=== PATIENT | male | born 1995 | race Caucasian/White ===

== ENCOUNTER → 2021-06-05 15:25 | Outpatient (CLI) | payer BC, SELFPAY ==
--- NOTE | 2021-06-05 15:30 | US_ITS ---
FINAL REPORT CLINICAL HISTORY: MASS FINDINGS: Sonographic images of the thyroid were obtained. The right lobe of the thyroid measures 1.5 x 4.4 x 2.2 cm. The left lobe of the thyroid measures 1.3 x 4.0 x 1.8 cm. There is a small isthmus nodule measuring 6.2 mm consistent with TI-RADS Category 4. IMPRESSION: Small isthmus nodule consistent with TI-RADS Category 4. No follow-up is recommended. Reviewed, Interpreted and Dictated by Elder Ascencio III, MD Transcribed by Marylou Coffman Authenticated by Elder Ascencio III, MD on 06/08/2021 02:00:16 PM [facility]
== END ==
PROVIDERS: PCP Family Medicine; Visit Provider Family Medicine
DX: E04.1 Nontoxic single thyroid nodule (principal)
CPT/HCPCS: 76536

== ENCOUNTER 2021-08-10 04:11 | Emergency (ER) | payer BC, SELFPAY ==
[2021-08-10 04:13] VITALS: BP 132/62; PULSE 78; RESP 16; TEMP 36.7; O2SAT 98; BMI 34.4
--- NOTE | 2021-08-10 04:21 | CT_ITS ---
PROCEDURE INFORMATION: Exam: CT Head Without Contrast Exam date and time: 08/10/2021 4:30 AM Age: 26 years old Clinical indication: Injury or trauma; Blunt trauma (contusions or hematomas); With loss of consciousness; Loss of consciousness for 30 minutes or less; Injury date: 08/10/21; Patient HX: Fall, multiple lacerations to the face. States loc for about 15 minutes. Also C/O headache TECHNIQUE: Imaging protocol: Computed tomography of the head without contrast. Radiation optimization: All CT scans at this facility use at least one of these dose optimization techniques: automated exposure control; mA and/or kV adjustment per patient size (includes targeted exams where dose is matched to clinical indication); or iterative reconstruction. COMPARISON: US THYROID 06/05/2021 3:37 PM FINDINGS: Brain: Normal. No hemorrhage. Unremarkable white matter. No mass effect. Cerebral ventricles: No ventriculomegaly. Paranasal sinuses: Minimal retained secretions present within the mid right ethmoidal sinus. Remaining paranasal sinuses appear well aerated. Mastoid air cells: Visualized mastoid air cells are well aerated. Vasculature: Intracranial artery density is normal. Bones/joints: Unremarkable. No acute fracture. Soft tissues: Unremarkable. IMPRESSION: 1. No evidence of acute intracranial bleed or focal cerebral edema. 2. Minimal retained secretions present within the right ethmoidal sinus. Remaining paranasal sinuses appear well aerated.
--- NOTE | 2021-08-10 04:22 | HMH.EDGENADL ---
ED Disposition Clinical Impression: Nausea vomiting and diarrhea Concussion Qualifiers: Encounter type: initial encounter Loss of consciousness presence/duration: with LOC of 30 min or less Qualified Code(s): S06.0X1A - Concussion with loss of consciousness of 30 minutes or less, initial encounter Facial laceration Qualifiers: Encounter type: initial encounter Qualified Code(s): S01.81XA - Laceration without foreign body of other part of head, initial encounter Disposition: Home, Self-Care Condition on Discharge: Good Instructions: DI for Concussion, DI for Postconcussion Syndrome, Nausea and Vomiting-Adult Additional Instructions: Follow-up with your primary care doctor. Return to the emergency department for any new or worsening symptoms, vision changes, headache, persistent vomiting, other concerns. Prescriptions: Ondansetron [Zofran 4mg ODT] 4 mg PO Q6 PRN #12 tab PRN Reason: Nausea Transmission Status: Received by [id number] Referrals: Tee Rodriguez [Primary Care Provider] - Forms: Work/School Release Time of Disposition: 05:35 - Critical Care Critical Care Time: No Attestation: On , the high probability of a clinically significant, sudden or life threatening deterioration of the following system(s) required my full and direct attention, intervention and personal management. The time I documented below is in addition to time spent performing reported procedures but includes the following listed in this critical care notation. Medical Decision Making - Medical Records Medical records reviewed: Yes: I reviewed the patient's medical records. - Teddy Inquiry Pt receiving controlled substance: No Vital Signs: 08/10/21 04:13 08/10/21 04:35 08/10/21 05:00 Temperature 98.1 F Temperature Source Oral Pulse Rate 81 Pulse Rate [Left Radial] 78 Pulse Rate [Orthostatic Lying Left Radial] 79 Pulse Rate [Orthostatic Sitting Left] 88 Pulse Rate [Orthostatic Standing Left Radial] 95 H Respiratory Rate 16 Blood Pressure 113/65 Blood Pressure [Orthostatic Lying Right Arm] 132/62 Blood Pressure [Orthostatic Sitting Right Arm] 130/77 Blood Pressure [Orthostatic Standing Right Arm] 129/73 Blood Pressure [Right Arm] 132/62 Blood Pressure Mean [Right Arm] 85 Blood Pressure Source Automatic Cuff Blood Pressure Source [Right Arm] Automatic Cuff Blood Pressure Position Sitting 02 Sat by Pulse Oximetry 98 93 L Oxygen Delivery Method Room Air Room Air 08/10/21 05:30 08/10/21 05:54 Temperature 97.9 F Temperature Source Oral Pulse Rate 85 87 Pulse Rate [Left Radial] Pulse Rate [Orthostatic Lying Left Radial] Pulse Rate [Orthostatic Sitting Left] Pulse Rate [Orthostatic Standing Left Radial] Respiratory Rate 14 Blood Pressure 120/71 132/70 Blood Pressure [Orthostatic Lying Right Arm] Blood Pressure [Orthostatic Sitting Right Arm] Blood Pressure [Orthostatic Standing Right Arm] Blood Pressure [Right Arm] Blood Pressure Mean [Right Arm] Blood Pressure Source Automatic Cuff Blood Pressure Source [Right Arm] Blood Pressure Position Supine 02 Sat by Pulse Oximetry 96 Oxygen Delivery Method Room Air Room Air - Lab Data Lab Results 08/10/21 04:51: WBC 10.8, RBC 5.11, Hgb 16.2, Hct 49.0, MCV 95.9 H, MCH 31.7 H, MCHC 33.1, RDW 13.4, Plt Count 235, MPV 8.8, Neut % (Auto) 90.9 H, Lymph % (Auto) 4.1 L, [place] % (Auto) 3.0, Eos % (Auto) 1.0, Baso % (Auto) 0.9, Neut # (Auto) 9.8 H, Lymph # (Auto) 0.5 L, [place] # (Auto) 0.3, Eos # (Auto) 0.1, Baso # (Auto) 0.1, Total Counted 100, Neutrophils % (Manual) 93 H, Lymphocytes % (Manual) 7 L, Platelet Estimate Normal, RBC Morphology Normal 08/10/21 04:51: Sodium 142, Potassium 4.8, Chloride 103, Carbon Dioxide 31 H, Anion Gap 12.8, BUN 15, Creatinine 0.90, Estimated Creat Clear 195, Estimated GFR 104, Est GFR ( Amer) 125, Glucose 133 H, Calcium 9.3, Total Bilirubin 0.9, AST 42, ALT 99 H, Alkaline Phosphata
[2021-08-10 04:35] VITALS: BP 129/73; BP 130/77; BP 132/62; PULSE 79; PULSE 88; PULSE 95
--- NOTE | 2021-08-10 04:45 | ECG_ITS ---
APPROVED REPORT Exam: Resting ECG HR:88 bpm ECG Measurements Heart Rate 88 AXES WY 166 P 40 QRSd 97 QRS -19 QT 341 T 31 QTc 386 Conclusion SINUS RHYTHM S1-S2-S3 PATTERN, CONSISTENT WITH PULMONARY DISEASE, RVH, OR NORMAL VARIANT PATTERN CONSISTENT WITH PULMONARY DISEASE ABNORMAL ECG UNCONFIRMED REPORT Electronically signed by : Vik Desir MD 08/11/2021 19:44:59
[2021-08-10 05:00] VITALS: BP 113/65; PULSE 81; O2SAT 93
[2021-08-10 05:01] LABS: Basophils # 0.1 K/mm3 (0-0.2); Basophils % 0.9 % (0.1-2.0); Eosinophils # 0.1 K/mm3 (0.0-0.4); Hemoglobin 16.2 g/dL (14.1-18.0); Lymphocytes # 0.5 K/mm3 (0.7-4.5); Lymphocytes % 4.1 % (10-50); Mean Corpuscular HGB Conc 33.1 g/dL (31.8-35.4); Mean Corpuscular Hemoglobin 31.7 pg (27.0-31.2); Mean Corpuscular Volume 95.9 fl (80-94); Mean Platelet Volume 8.8 fl (7.4-10.4); Monocytes # 0.3 K/mm3 (0.1-1.0); Neutrophils # 9.8 K/mm3 (1.8-7.8); Neutrophils % 90.9 % (37.0-80.0); Platelet Count 235 K/mm3 (142-424); Red Blood Count 5.11 M/mm3 (4.60-6.20); Red Cell Distribution Width 13.4 % (11.5-17.5); White Blood Count 10.8 K/mm3 (4.8-10.8)
[2021-08-10 05:06] LABS: MANUAL DIFFERENTIAL MANUAL DIFFERENTIAL (MANUAL DIFF)
[2021-08-10 05:09] LABS: Alanine Aminotransferase 99 U/L (12-78); Albumin Level 4.7 g/dl (3.5-5.0); Albumin/Globulin Ratio 1.2 (1.1-1.8); Alkaline Phosphatase 50 U/L (38-126); Anion Gap 12.8 mEq/L (5-15); Aspartate Amino Transferase 42 U/L (17-59); Bilirubin,Total 0.9 mg/dl (0.2-1.3); Blood Urea Nitrogen 15 mg/dl (9-20); Calcium 9.3 mg/dl (8.4-10.2); Carbon Dioxide 31 mmol/L (22.0-30.0); Chloride 103 mmol/L (98-107); Creatinine Clearance Estimated 195 mL/min (50-200); Estimated Glomerular Filt Rate 104 ml/min (>60); GFR (African American) 125 ML/MIN (>60); Glucose 133 mg/dl (74-100); Lipase 46 U/L (23-300); Potassium 4.8 mmoL/L (3.5-5.1); Sodium 142 mmol/L (136-145); Total Protein,Serum 8.7 g/dl (6.3-8.2)
[2021-08-10 05:30] VITALS: BP 120/71; PULSE 85; O2SAT 96
[2021-08-10 05:53] LABS: Lymphocytes % 7 % (10-50); Neutrophils % 93 % (42-76); Platelet Estimate Normal; RBC Morphology Normal; Total Cells Counted 100
[2021-08-10 05:54] VITALS: BP 132/70; PULSE 87; RESP 14; TEMP 36.6; O2SAT 98
== END 2021-08-10 06:05 | disposition home or self-care (01) ==
PROVIDERS: Emergency Provider Emergency Medicine; PCP Family Medicine
DX: S01.21XA Laceration without foreign body of nose, initial encounter (principal); S01.511A Laceration without foreign body of lip, initial encounter; R42 Dizziness and giddiness; R11.2 Nausea with vomiting, unspecified; R19.7 Diarrhea, unspecified; Z23 Encounter for immunization; W19.XXXA Unspecified fall, initial encounter
CPT/HCPCS: 12013; 70450; 80053; 83690; 85007; 85025; 90471; 90714; 93005; 96365; 96374; 96375; 99285; J2405

== ENCOUNTER 2021-08-17 06:56 | Emergency (ER) | payer BC, SELFPAY ==
[2021-08-17] VITALS (8 sets, daily range): BP systolic 117–150; BP diastolic 57–94; PULSE 65–92; RESP 16–22; TEMP 36.6–36.7; O2SAT 95–97; BMI 34.4
--- NOTE | 2021-08-17 06:55 | ECG_ITS ---
APPROVED REPORT Exam: Resting ECG HR:90 bpm ECG Measurements Heart Rate 90 AXES DC 164 P 76 QRSd 107 QRS -21 QT 349 T 48 QTc 397 Conclusion SINUS RHYTHM BORDERLINE LEFT AXIS DEVIATION [QRS AXIS < -20] BORDERLINE ECG UNCONFIRMED REPORT Electronically signed by : Vik Desir MD 08/17/2021 15:59:53
--- NOTE | 2021-08-17 07:11 | XR_ITS ---
FINAL REPORT CLINICAL HISTORY: abd pain FINDINGS: A single portable view of the chest was obtained. The heart size and pulmonary vascularity are within normal limits. The mediastinum is within normal limits. No acute pulmonary abnormality is identified. The bony thorax is intact. IMPRESSION: No active cardiopulmonary disease. Reviewed, Interpreted and Dictated by Elder Ascencio III, MD Transcribed by Nayan Chu Authenticated by Elder Ascencio III, MD on 08/17/2021 08:28:48 AM [facility]
--- NOTE | 2021-08-17 07:13 | HMH.EDNVD ---
ED Disposition Condition on Discharge: Good - Critical Care Critical Care Time: No <ZekeAguilar - Last Filed: 08/17/21 08:37> Condition on Discharge: Good <Ritesh Escamilla - Last Filed: 08/17/21 10:00> Clinical Impression: Mesenteric adenitis Abdominal pain Qualifiers: Abdominal location: left upper quadrant Qualified Code(s): R10.12 - Left upper quadrant pain Disposition: Home, Self-Care Instructions: DI for Acute Abdominal Pain, DI for Mesenteric Adenitis-Adult Additional Instructions: follow up PCP, return for worse Prescriptions: Dicyclomine HCl [Bentyl 10mg capsule] 10 mg PO QID PRN #30 cap PRN Reason: Cramping Transmission Status: Pending to [facility] Referrals: Tee Rodriguez [Primary Care Provider] - Attestation: On 08/17/21, the high probability of a clinically significant, sudden or life threatening deterioration of the following system(s) required my full and direct attention, intervention and personal management. The time I documented below is in addition to time spent performing reported procedures but includes the following listed in this critical care notation. Medical Decision Making - Medical Records Medical records reviewed: Yes: I reviewed the patient's medical records. - Teddy Inquiry Pt receiving controlled substance: No - Lab Data Lab results reviewed: Yes: I reviewed the patient's lab results. Result diagrams: 08/17/21 07:05 08/17/21 07:05 - ECG Data Tracing #1 Normal Sinus Rhythm: Yes Ischemic changes: non-specific ST-T wave changes <Aguilar Alanis - Last Filed: 08/17/21 08:37> - Medical Records Medical records reviewed: Yes: I reviewed the patient's medical records. - Teddy Inquiry Pt receiving controlled substance: No - Lab Data Result diagrams: 08/17/21 07:05 08/17/21 07:05 - Reevaluation(s) Time: 09:57 (reeval, appears well, vss, abd soft, ok with plan to rx and f/u pcp) <Ritesh Escamilla - Last Filed: 08/17/21 10:00> Vital Signs: 08/17/21 06:57 08/17/21 07:22 08/17/21 07:39 Temperature 98.1 F Temperature Source Oral Pulse Rate 76 73 Pulse Rate [Left] 92 H Respiratory Rate 22 18 18 Blood Pressure 131/78 150/94 H Blood Pressure [Right Arm] 144/80 H Blood Pressure Mean 95 112 Blood Pressure Mean [Right Arm] 101 02 Sat by Pulse Oximetry 97 97 95 Oxygen Delivery Method Room Air Room Air 08/17/21 08:00 Temperature Temperature Source Pulse Rate 73 Pulse Rate [Left] Respiratory Rate Blood Pressure 148/93 H Blood Pressure [Right Arm] Blood Pressure Mean 105 Blood Pressure Mean [Right Arm] 02 Sat by Pulse Oximetry 95 Oxygen Delivery Method Room Air - Lab Data Lab Results 08/17/21 07:05: WBC 7.0, RBC 4.82, Hgb 15.0, Hct 46.0, MCV 95.4 H, MCH 31.2, MCHC 32.7, RDW 13.1, Plt Count 311, MPV 8.2, Neut % (Auto) 57.9, Lymph % (Auto) 31.3, [place] % (Auto) 7.5, Eos % (Auto) 1.4, Baso % (Auto) 1.9, Neut # (Auto) 4.0, Lymph # (Auto) 2.2, [place] # (Auto) 0.5, Eos # (Auto) 0.1, Baso # (Auto) 0.1 08/17/21 07:05: Sodium 141, Potassium 4.1, Chloride 106, Carbon Dioxide 27, Anion Gap 12.1, BUN 13, Creatinine 0.70, Estimated Creat Clear 251, Estimated GFR 139, Est GFR ( Amer) 168, Glucose 124 H, Calcium 8.8, Total Bilirubin 0.4, AST 48, ALT 98 H, Alkaline Phosphatase 54, Troponin I < 0.01, Total Protein 7.6, Albumin 4.3, Globulin 3.3 H, Albumin/Globulin Ratio 1.3 08/17/21 07:05: Lipase 185 08/17/21 07:05: ESR 24 H 08/17/21 07:05: C-Reactive Protein 2.5 08/17/21 07:05: Amylase 71 08/17/21 09:23: Urine Color Yellow, Urine Appearance Clear, Urine pH 8.0, Ur Specific [place] <= 1.005, Urine Protein Negative, Urine Glucose (UA) Negative, Urine Ketones Negative, Urine Blood Negative, Urine Nitrate Negative, Urine Bilirubin Negative, Urine Urobilinogen 1.0, Ur Leukocyte Esterase Negative, Urine RBC None, Urine WBC 3-5, Ur Squamous Epith Cells Occasional, Urine Bacteria None Orders (Tests/Meds): ED M
--- NOTE | 2021-08-17 07:14 | CT_ITS ---
FINAL REPORT CLINICAL HISTORY: epigastric abd pain, nausea FINDINGS: CT OF THE ABDOMEN AND PELVIS WITH CONTRAST Axial CT images of the abdomen and pelvis were obtained after the administration of IV contrast. Coronal reformatted images were also obtained and reviewed.This study was performed with techniques to keep radiation doses as low as reasonably achievable (ALARA). Individualized dose reduction techniques using automated exposure control or adjustment of mA and/or kV according to the patient's size were employed. Abdomen: The lung bases are clear. The heart is normal in size. The liver has an unremarkable appearance, without evidence of mass or biliary ductal dilatation. The gallbladder is mildly distended without evidence of gallstones. The spleen is unremarkable. No adrenal mass is present. The pancreas has an unremarkable appearance. The kidneys are normal, without evidence of mass or hydronephrosis. The aorta is normal in caliber. There is no free fluid or adenopathy. No mass or abnormal fluid collection is seen. There are multiple borderline size mesenteric lymph nodes with mild mesenteric stranding which may be reactive or may represent mild mesenteric panniculitis. Pelvis: The appendix is normal. The urinary bladder is unremarkable. There is no evidence of mass or adenopathy. There is no evidence of bowel obstruction. IMPRESSION: Mild gallbladder distension without evidence of gallstones. Multiple borderline size mesenteric lymph nodes with mild mesenteric stranding, may be reactive or may represent mild mesenteric panniculitis. Reviewed, Interpreted and Dictated by Elder Ascencio III, MD Transcribed by Elsa Reyes Authenticated by Elder Ascencio III, MD on 08/17/2021 09:39:48 AM [facility]
[2021-08-17 07:19] LABS: Basophils # 0.1 K/mm3 (0-0.2); Basophils % 1.9 % (0.1-2.0); Eosinophils # 0.1 K/mm3 (0.0-0.4); Eosinophils % 1.4 % (0.1-12.0); Lymphocytes # 2.2 K/mm3 (0.7-4.5); Lymphocytes % 31.3 % (10-50); Mean Corpuscular HGB Conc 32.7 g/dL (31.8-35.4); Mean Corpuscular Hemoglobin 31.2 pg (27.0-31.2); Mean Corpuscular Volume 95.4 fl (80-94); Mean Platelet Volume 8.2 fl (7.4-10.4); Monocytes # 0.5 K/mm3 (0.1-1.0); Monocytes % 7.5 % (1.7-9.3); Neutrophils % 57.9 % (37.0-80.0); Platelet Count 311 K/mm3 (142-424); Red Blood Count 4.82 M/mm3 (4.60-6.20); Red Cell Distribution Width 13.1 % (11.5-17.5)
[2021-08-17 07:21] LABS: Lipase 185 U/L (23-300)
[2021-08-17 07:23] LABS: Alanine Aminotransferase 98 U/L (12-78); Albumin Level 4.3 g/dl (3.5-5.0); Albumin/Globulin Ratio 1.3 (1.1-1.8); Alkaline Phosphatase 54 U/L (38-126); Anion Gap 12.1 mEq/L (5-15); Aspartate Amino Transferase 48 U/L (17-59); Bilirubin,Total 0.4 mg/dl (0.2-1.3); Blood Urea Nitrogen 13 mg/dl (9-20); Calcium 8.8 mg/dl (8.4-10.2); Carbon Dioxide 27 mmol/L (22.0-30.0); Chloride 106 mmol/L (98-107); Creatinine Clearance Estimated 251 mL/min (50-200); Estimated Glomerular Filt Rate 139 ml/min (>60); GFR (African American) 168 ML/MIN (>60); Globulin 3.3 g/dL (1.3-3.2); Glucose 124 mg/dl (74-100); Potassium 4.1 mmoL/L (3.5-5.1); Sodium 141 mmol/L (136-145); Total Protein,Serum 7.6 g/dl (6.3-8.2)
[2021-08-17 07:34] LABS: Troponin I < 0.01 ng/ml (0.00-0.034)
--- NOTE | 2021-08-17 07:42 | PC.NURSE ---
patient to CT with opto mechanical technician by wheelchair
[2021-08-17 07:45] LABS: Erythrocyte Sedimentation Rate 24 mm/hr (0-15)
[2021-08-17 07:51] LABS: C-Reactive Protein 2.5 mg/L (0-4)
--- NOTE | 2021-08-17 07:51 | PC.NURSE ---
notified lab of added on order, spoke with dominga
--- NOTE | 2021-08-17 07:53 | PC.NURSE ---
patient back from radiology by wheelchair with technical applications specialist
[2021-08-17 08:02] LABS: Amylase 71 U/L (30-110)
--- NOTE | 2021-08-17 08:16 | US_ITS ---
FINAL REPORT CLINICAL HISTORY: upper abd pain FINDINGS: Sonographic images of the right upper quadrant were obtained. The pancreas is partially obscured. The liver has increased echogenicity consistent fatty infiltration. There is sludge within the gallbladder without evidence of gallstones. There is no evidence of biliary ductal dilatation.The common duct measures 3 mm. Limited images of the right kidney are unremarkable. IMPRESSION: Fatty infiltrated liver. Sludge within the gallbladder without evidence of gallstones. Reviewed, Interpreted and Dictated by Elder Ascencio III, MD Transcribed by Elsa Reyes Authenticated by Elder Ascencio III, MD on 08/17/2021 10:15:20 AM [facility]
--- NOTE | 2021-08-17 08:56 | PC.NURSE ---
Patient to US with instructional support technician by wheelchair
--- NOTE | 2021-08-17 09:18 | PC.WOUNDNOTE ---
patient back from US with clinical technologist
[2021-08-17 09:30] LABS: Microscopic, Urine URINE MICROSCOPIC (MICROSCOPIC)
[2021-08-17 09:32] LABS: Appearance,Urine CLEAR (Clear); Bilirubin,Urine Negative (Negative); Blood, Urine Negative (Negative); Color,Urine YELLOW (Yellow); Glucose,Urine (UA) Negative (Negative); Ketones,Urine Negative (Negative); Leukocyte Esterase,Urine Negative (Negative); Nitrate,Urine Negative (Negative); Protein,Urine Negative (Negative); Specific Gravity, Urine <= 1.005 (1.005-1.030)
[2021-08-17 09:43] LABS: Squamous Epithelial Cell,Urine Occasional #/hpf (0-5)
--- NOTE | 2021-08-17 09:55 | PC.NURSE ---
ED MD at for update on POC
== END 2021-08-17 10:12 | disposition home or self-care (01) ==
PROVIDERS: Emergency Provider Emergency Medicine; PCP Family Medicine
DX: I88.0 Nonspecific mesenteric lymphadenitis (principal)
CPT/HCPCS: 71045; 74177; 76705; 80053; 81001; 82150; 83690; 84484; 85025; 85651; 86140; 93005; 96365; 96375; 96376; 99284; J2405; Q9967

== ENCOUNTER 2021-12-18 14:25 | Emergency (ER) | payer BC, SELFPAY ==
[2021-12-18 14:35] VITALS: BP 145/80; PULSE 72; RESP 18; TEMP 36.9; O2SAT 98; BMI 35.4
--- NOTE | 2021-12-18 14:50 | PC.NURSE ---
PATIENT SENT TO ER PER Maria Antonia URBANO APRN FOR FURTHER EVALUATION
--- NOTE | 2021-12-18 14:50 | HMH.EDUTC ---
[facility] [place] Clinical Impression: Abdominal pain Qualifiers: Abdominal location: unspecified location Qualified Code(s): R10.9 - Unspecified abdominal pain Disposition: Still a Patient Condition on Discharge: Good Referrals: Tee Rodriguez [Primary Care Provider] - Medical Decision Making - Teddy Inquiry Pt receiving controlled substance: No Teddy was queried for this patient: No Vital Signs: 12/18/21 14:35 Temperature 98.5 F Temperature Source Oral Pulse Rate [Right Brachial] 72 Respiratory Rate 18 Blood Pressure [Right Arm] 145/80 H Blood Pressure Mean [Right Arm] 101 Blood Pressure Source [Right Arm] Automatic Cuff Blood Pressure Position [Right Arm] Sitting 02 Sat by Pulse Oximetry 98 Oxygen Delivery Method Room Air Medical Decision Narrative: Due to location of pain and tenderness with palpation on exam concern for appendicitis discussed with patient and recommended transfer to the ED for further work up and evaluation and patient agreed Called ED and patient was assigned room 11 Patient was moved without problems [facility] [place] - General Stated complaint: lower right abdominal pain Time Seen by Provider: 12/18/21 14:45 Mode of Arrival: Ambulatory Source of Information: Patient Limitations: No Limitations Description of Symptoms (Recalled from Triage Doc. by RN): PATIENT C/O SHARP PAIN TO RLQ THAT STARTED SUDDENLY IN THE MIDDLE OF THE NIGHT. DENIES ANY NAUSEA OR VOMITING. HE RATES HIS PAIN 5/10 AND STATES IT IS WORSE WITH CERTAIN MOVEMENTS HEENT Symptoms (Recalled from RN notes): No Resp Symptoms (Recalled from RN notes): No Skin Symptoms (Recalled from RN notes): No MS Symptoms (Recalled from RN notes): No Functional Status (Recalled from RN notes): WNL - History of Present Illness Provider Complaint: Patient states that he was woke up in the middle of the of the with stabbing pain in his right lower abdomen States that he has been having nausea on and off but they have been doing test to check his gallbladder and has had nausea on off States that pain has been persistant throughout the day and worse when he raises leg or tries to raise from sitting States he went to work thinking it would get better but has continued to have pain so he came in to get it checked out - Related Data Previous Rx's Medication Instructions Recorded Ondansetron [Zofran 4mg ODT] 4 mg PO Q6 PRN #12 tab 03/24/22 Dicyclomine HCl [Bentyl 10mg 10 mg PO QID PRN #30 cap 08/17/21 capsule] Allergies Allergy/AdvReac Type Severity Reaction Status Date / Time No Known Allergies Allergy Verified 08/10/21 04:31 - Worker's Comp Is this a Worker's Comp case?: No [facility] History - Hepatitis A Screen Attestation statement:: This patient has been screened for Hepatitis A risk factors. I have reviewed the patient's past medical history: Yes ROS Obtained: Yes All systems reviewed & no additional complaints, Yes Systems reviewed as appropriate & no additional complaints - Constitutional Constitutional: Reports system reviewed and no additional complaints, except as docu, Denies chills, Denies fever(s) - Eyes Eyes: Reports system reviewed and no additional complaints, except as docu - ENT Ears, Nose, Mouth, and Throat: Reports system reviewed and no additional complaints, except as docu, Denies otalgia, Denies sore throat - Cardiovascular Cardiovascular: Reports system reviewed and no additional complaints, except as docu - Respiratory Respiratory: Reports system reviewed and no additional complaints, except as docu - Gastrointestinal Gastrointestingal: Reports: system reviewed and no additional complaints, except as docu, abdominal pain Comments: pain in right lower quad that started in middle of the night rates 5 - Genitourinary Male Genitourinary: Reports system reviewed and no additional complaints, except as docu Physical Exam - General General appearance: alert, in no apparent distr
[2021-12-18 14:58] VITALS: BP 148/93; PULSE 91; RESP 16; TEMP 37.2; O2SAT 98; BMI 33.7
--- NOTE | 2021-12-18 15:05 | HMH.EDGENADL ---
ED Disposition Clinical Impression: Abdominal pain Qualifiers: Abdominal location: unspecified location Qualified Code(s): R10.9 - Unspecified abdominal pain Disposition: Home, Self-Care Condition on Discharge: Good Instructions: DI for Acute Abdominal Pain Additional Instructions: Ibuprofen for pain. Follow-up with primary care provider if not improved in 2 to 3 days. Additional instructions for ABDOMINAL PAIN: Return immediately if worsening abdominal pain, vomiting, shortness of breath, fever, vomiting of blood or abdominal distention. Prescriptions: Ibuprofen [Ibuprofen 800mg Tablet] 800 mg PO Q8HP PRN #15 tab PRN Reason: Moderate Pain Transmission Status: Pending to [facility] Referrals: Tee Rodriguez [Primary Care Provider] - - Critical Care Critical Care Time: No Attestation: On 12/18/21, the high probability of a clinically significant, sudden or life threatening deterioration of the following system(s) required my full and direct attention, intervention and personal management. The time I documented below is in addition to time spent performing reported procedures but includes the following listed in this critical care notation. Medical Decision Making - Medical Records Medical records reviewed: Yes: I reviewed the patient's medical records. MR Comment: Reviewed emergency department note, CT abdomen and pelvis report, gallbladder ultrasound report from 08/17/2021, visit for upper abdominal pain. - Teddy Inquiry Pt receiving controlled substance: No Vital Signs: 12/18/21 14:35 12/18/21 14:58 12/18/21 15:30 Temperature 98.5 F 98.9 F Temperature Source Oral Oral Pulse Rate 82 Pulse Rate [Right Brachial] 72 91 H Respiratory Rate 18 16 18 Blood Pressure 124/68 Blood Pressure [Right Arm] 145/80 H 148/93 H Blood Pressure Mean 86 Blood Pressure Mean [Right Arm] 101 111 Blood Pressure Source [Right Arm] Automatic Cuff Blood Pressure Position [Right Arm] Sitting Sitting 02 Sat by Pulse Oximetry 98 98 100 Oxygen Delivery Method Room Air Room Air 12/18/21 16:00 12/18/21 16:30 Temperature Temperature Source Pulse Rate 72 83 Pulse Rate [Right Brachial] Respiratory Rate 18 18 Blood Pressure 134/81 138/72 Blood Pressure [Right Arm] Blood Pressure Mean 98 98 Blood Pressure Mean [Right Arm] Blood Pressure Source [Right Arm] Blood Pressure Position [Right Arm] 02 Sat by Pulse Oximetry 98 100 Oxygen Delivery Method - Lab Data Lab Results 12/18/21 14:08: Urine Color Yellow, Urine Appearance Clear, Urine pH 6.0, Ur Specific [place] >= 1.030, Urine Protein Negative, Urine Glucose (UA) Negative, Urine Ketones Negative, Urine Blood Negative, Urine Nitrate Negative, Urine Bilirubin Negative, Urine Urobilinogen 0.2, Ur Leukocyte Esterase Negative, Urine RBC None, Urine WBC None, Ur Squamous Epith Cells None, Urine Bacteria None 12/18/21 15:05: WBC 6.7, RBC 4.85, Hgb 15.0, Hct 46.2, MCV 95.4 H, MCH 30.9, MCHC 32.4, RDW 13.7, Plt Count 209, MPV 8.6, Neut % (Auto) 60.8, Lymph % (Auto) 28.9, [place] % (Auto) 7.7, Eos % (Auto) 0.9, Baso % (Auto) 1.8, Neut # (Auto) 4.1, Lymph # (Auto) 1.9, [place] # (Auto) 0.5, Eos # (Auto) 0.1, Baso # (Auto) 0.1 12/18/21 15:05: Sodium 141, Potassium 4.1, Chloride 105, Carbon Dioxide 29, Anion Gap 11.1, BUN 13, Creatinine 0.80, Estimated Creat Clear 215, Estimated GFR 119, Est GFR ( Amer) 144, Glucose 100, Calcium 9.6, Total Bilirubin < 0.1 L, AST 47, ALT 95 H, Alkaline Phosphatase 60, Total Protein 8.4 H, Albumin 4.7, Globulin 3.7 H, Albumin/Globulin Ratio 1.3 12/18/21 15:05: Lipase 82 Result diagrams: 12/18/21 15:05 12/18/21 15:05 Orders (Tests/Meds): ED MEDICATIONS Generic Name Dose Route Start Last Admin Trade Name Freq PRN Reason Stop Dose Admin Ketorolac Tromethamine 30 mg 12/18/21 18:03 Ketorolac 30mg/Ml Vial IV 12/18/21 18:04 ONCE ONE Sodium Chloride 10 ml 12/18/21 15:50 12/18/21 15:52 S
[2021-12-18 15:17] LABS: Microscopic, Urine URINE MICROSCOPIC (MICROSCOPIC)
[2021-12-18 15:18] LABS: Appearance,Urine CLEAR (Clear); Bilirubin,Urine Negative (Negative); Blood, Urine Negative (Negative); Color,Urine YELLOW (Yellow); Glucose,Urine (UA) Negative (Negative); Ketones,Urine Negative (Negative); Leukocyte Esterase,Urine Negative (Negative); Nitrate,Urine Negative (Negative); Protein,Urine Negative (Negative); Specific Gravity, Urine >= 1.030 (1.005-1.030); Urobilinogen,Urine 0.2 EU/dl (0.2)
[2021-12-18 15:19] LABS: Basophils # 0.1 K/mm3 (0-0.2); Basophils % 1.8 % (0.1-2.0); Eosinophils # 0.1 K/mm3 (0.0-0.4); Eosinophils % 0.9 % (0.1-12.0); Hematocrit 46.2 % (42.0-52.0); Lymphocytes # 1.9 K/mm3 (0.7-4.5); Lymphocytes % 28.9 % (10-50); Mean Corpuscular HGB Conc 32.4 g/dL (31.8-35.4); Mean Corpuscular Hemoglobin 30.9 pg (27.0-31.2); Mean Corpuscular Volume 95.4 fl (80-94); Mean Platelet Volume 8.6 fl (7.4-10.4); Monocytes # 0.5 K/mm3 (0.1-1.0); Monocytes % 7.7 % (1.7-9.3); Neutrophils # 4.1 K/mm3 (1.8-7.8); Neutrophils % 60.8 % (37.0-80.0); Platelet Count 209 K/mm3 (142-424); Red Blood Count 4.85 M/mm3 (4.60-6.20); Red Cell Distribution Width 13.7 % (11.5-17.5); White Blood Count 6.7 K/mm3 (4.8-10.8)
--- NOTE | 2021-12-18 15:25 | CT_ITS ---
FINAL REPORT CLINICAL HISTORY: RLQ pain COMPARISON: 08/17/2021 FINDINGS: CT OF THE ABDOMEN AND PELVIS WITH CONTRAST Axial CT images of the abdomen and pelvis were obtained after the administration of IV contrast. Coronal reformatted images were also obtained and reviewed.This study was performed with techniques to keep radiation doses as low as reasonably achievable (ALARA). Individualized dose reduction techniques using automated exposure control or adjustment of mA and/or kV according to the patient's size were employed. Abdomen: The lung bases are clear. The heart is normal in size. There is mild fatty infiltration of the liver. There is no evidence of mass or biliary ductal dilatation. The spleen is unremarkable. No adrenal mass is present. The pancreas has an unremarkable appearance. The kidneys are normal, without evidence of mass or hydronephrosis. The aorta is normal in caliber. There is no free fluid or adenopathy. No mass or abnormal fluid collection is seen. There is been interval improvement of stranding small-bowel mesentery. There is a small umbilical hernia containing fat. Pelvis: The appendix is normal. The urinary bladder is unremarkable. There is wall thickening of the distal sigmoid colon of uncertain significance, favor inflammatory. There is no evidence of mass or adenopathy. There is no evidence of bowel obstruction. IMPRESSION: Wall thickening of the distal sigmoid colon of uncertain significance, may represent colitis. Reviewed, Interpreted and Dictated by Elder Ascecnio III, MD Transcribed by Elsa Reyes Authenticated and [facility]
[2021-12-18 15:30] VITALS: BP 124/68; PULSE 82; RESP 18; O2SAT 100
[2021-12-18 15:33] LABS: Chloride 105 mmol/L (98-107); Potassium 4.1 mmoL/L (3.5-5.1); Sodium 141 mmol/L (136-145)
[2021-12-18 15:36] LABS: Alanine Aminotransferase 95 U/L (12-78); Albumin Level 4.7 g/dl (3.5-5.0); Albumin/Globulin Ratio 1.3 (1.1-1.8); Alkaline Phosphatase 60 U/L (38-126); Anion Gap 11.1 mEq/L (5-15); Aspartate Amino Transferase 47 U/L (17-59); Blood Urea Nitrogen 13 mg/dl (9-20); Calcium 9.6 mg/dl (8.4-10.2); Carbon Dioxide 29 mmol/L (22.0-30.0); Creatinine Clearance Estimated 215 mL/min (50-200); Estimated Glomerular Filt Rate 119 ml/min (>60); GFR (African American) 144 ML/MIN (>60); Globulin 3.7 g/dL (1.3-3.2); Glucose 100 mg/dl (74-100); Total Protein,Serum 8.4 g/dl (6.3-8.2)
[2021-12-18 15:37] LABS: Bilirubin,Total < 0.1 mg/dl (0.2-1.3)
[2021-12-18 16:00] VITALS: BP 134/81; PULSE 72; RESP 18; O2SAT 98
[2021-12-18 16:30] VITALS: BP 138/72; PULSE 83; RESP 18; O2SAT 100
[2021-12-18 17:19] LABS: Lipase 82 U/L (23-300)
[2021-12-18 18:19] VITALS: BP 131/74; PULSE 81; RESP 17; TEMP 36.9; O2SAT 99
== END 2021-12-18 18:20 | disposition home or self-care (01) ==
LOC: UTC 14:29 → ER 14:50
PROVIDERS: Emergency Provider Emergency Medicine; PCP Family Medicine
DX: R10.31 Right lower quadrant pain (principal); R11.0 Nausea
CPT/HCPCS: 74177; 80053; 81001; 83690; 85025; 96361; 96374; 96375; 99284; J2405; Q9967